=== PATIENT | male | born 1975 | race Caucasian/White ===

== ENCOUNTER 2022-06-14 00:29 | Emergency (ER) | payer SELFPAY ==
[~2022-06-14] VITALS: Ht 162.6 cm; Wt 122.0 kg
[~2022-06-14 00:29] MED LIST: ATEN100 PO; ATOR10 PO; BUPR100 PO; Coumadin7.5 MG PO; Cyclobenzaprine5 MG PO; FAMO40 PO; FUROSEMIDE20 MG PO; INVOKANA100 MG PO; LANOXIN250 MCG PO; MONT10T PO; Potassium Chlo20 ME1 PO; SITA25T2 PO; VITAMIN D5000 UNIT PO; WARF7.5 PO
[2022-06-14 01:45] LABS: BASOPHILS ABSOLUTE AUTO 0.06 K/mm3 (0.00-0.23); BASOPHILS PERCENT AUTO 1 % (0-2); EOSINOPHILS ABSOLUTE AUTO 1.14 K/mm3 (0.00-0.68); EOSINOPHILS PERCENT AUTO 10 % (0-6); Hematocrit 32.6 % (37.0-53.0); Hemoglobin 9.8 g/dL (13.5-17.5); IMMATURE GRAN ABSOLUTE AUTO 0.04 K/mm3 (0.00-0.10); IMMATURE GRAN PERCENT AUTO 0 % (0-1); LYMPHOCYTES ABSOLUTE AUTO 1.73 K/mm3 (0.84-5.20); LYMPHOCYTES PERCENT AUTO 15 % (21-46); MONOCYTES ABSOLUTE AUTO 0.87 K/mm3 (0.16-1.47); MONOCYTES PERCENT AUTO 7 % (4-13); Mean Corpuscular HGB 26.5 pg (26.0-34.0); Mean Corpuscular HGB Conc 30.1 g/dL (31.5-36.5); Mean Corpuscular Volume 88 fL (80-100); Mean Platelet Volume 9.9 fL (9.1-12.4); NEUTROPHILS ABSOLUTE AUTO 8.09 K/mm3 (1.96-9.15); NEUTROPHILS PERCENT AUTO 68 % (41-73); Platelet Count 381 K/mm3 (150-400); RDW Coefficient Variation 16.4 % (11.7-14.2); RDW Standard Deviation 52.8 fL (35.1-46.3); White Blood Cell Count 11.93 K/mm3 (4.00-11.30)
[2022-06-14 02:05] LABS: Albumin, Blood 3.5 g/dL (3.4-5.0); Albumin/Globulin Ratio 0.8 (0.8-1.8); Bilirubin, Total 0.3 mg/dL (0.1-1.0); Bun/Creatinine Ratio 15.7 (12.0-20.0); Calcium, Blood 9.5 mg/dL (8.5-10.1); Creatinine, Blood 1.02 mg/dL (0.60-1.20); Globulin, Blood 4.3 g/dL (2.2-4.0); Magnesium, Blood 2.2 mg/dL (1.6-2.4); Potassium, Blood 4.3 mmol/L (3.5-5.5); Total Protein, Blood 7.8 g/dL (6.4-8.2)
== END 2022-06-14 12:05 | disposition home or self-care (01) ==
LOC: ER 00:29
PROVIDERS: Student in an Organized Health Care Education/Training Program
DX: R06.00 Dyspnea, unspecified (principal); J45.909 Unspecified asthma, uncomplicated; I50.9 Heart failure, unspecified; Z88.8 Allergy status to other drugs, medicaments and biological substances; Z79.899 Other long term (current) drug therapy; Z79.01 Long term (current) use of anticoagulants
CPT/HCPCS: 71046; 80053; 83735; 83880; 84484; 85025; 93005; 93010; 93306

== ENCOUNTER 2022-06-26 23:36 | Emergency (ER) | payer OTHER ==
[~2022-06-26] VITALS: Ht 162.6 cm; Wt 122.5 kg
[2022-06-27 01:47] LABS: Albumin, Blood 3.5 g/dL (3.4-5.0); Albumin/Globulin Ratio 0.8 (0.8-1.8); Bilirubin, Total 0.4 mg/dL (0.1-1.0); Bun/Creatinine Ratio 9.7 (12.0-20.0); Calcium, Blood 9.2 mg/dL (8.5-10.1); Creatinine, Blood 1.24 mg/dL (0.60-1.20); Globulin, Blood 4.4 g/dL (2.2-4.0); Potassium, Blood 3.7 mmol/L (3.5-5.5); Total Protein, Blood 7.9 g/dL (6.4-8.2)
[2022-06-27 01:55] LABS: BASOPHILS ABSOLUTE AUTO 0.03 K/mm3 (0.00-0.23); BASOPHILS PERCENT AUTO 0 % (0-2); EOSINOPHILS ABSOLUTE AUTO 0.68 K/mm3 (0.00-0.68); EOSINOPHILS PERCENT AUTO 8 % (0-6); Hematocrit 31.6 % (37.0-53.0); Hemoglobin 9.9 g/dL (13.5-17.5); IMMATURE GRAN ABSOLUTE AUTO 0.04 K/mm3 (0.00-0.10); IMMATURE GRAN PERCENT AUTO 1 % (0-1); LYMPHOCYTES ABSOLUTE AUTO 2.09 K/mm3 (0.84-5.20); LYMPHOCYTES PERCENT AUTO 25 % (21-46); MONOCYTES ABSOLUTE AUTO 0.53 K/mm3 (0.16-1.47); MONOCYTES PERCENT AUTO 6 % (4-13); Mean Corpuscular HGB 26.8 pg (26.0-34.0); Mean Corpuscular HGB Conc 31.3 g/dL (31.5-36.5); Mean Corpuscular Volume 85 fL (80-100); Mean Platelet Volume 9.8 fL (9.1-12.4); NEUTROPHILS ABSOLUTE AUTO 4.86 K/mm3 (1.96-9.15); NEUTROPHILS PERCENT AUTO 59 % (41-73); Platelet Count 274 K/mm3 (150-400); RDW Standard Deviation 47.1 fL (35.1-46.3); White Blood Cell Count 8.23 K/mm3 (4.00-11.30)
[2022-06-27] MEDS ORDERED: LASIX20 M2 PO (05:27)
[2022-06-27] MEDS ORDERED: POTCHL20ER PO (05:27)
== END 2022-06-27 11:23 | disposition home or self-care (01) ==
LOC: ER 23:36
PROVIDERS: Emergency Medicine
DX: R60.0 Localized edema (principal); R06.02 Shortness of breath; Z88.8 Allergy status to other drugs, medicaments and biological substances; Z79.899 Other long term (current) drug therapy; Z79.01 Long term (current) use of anticoagulants
CPT/HCPCS: 71045; 80053; 83880; 84484; 85025; 93005; 93010; 97162; 97530; A9270; J1940

== ENCOUNTER → 2022-08-27 | Outpatient (CLI) | payer OTHER ==
[~2022-08-27] MED LIST changes: +LASIX20 M2 PO; +POTCHL20ER PO
[2022-08-27 13:56] LABS: Appearance, Urine Clear (Clear); Bilirubin, Urine Neg (Neg); Blood, Urine 4+ (Neg); Color, Urine Yellow (P-Yellow); Glucose Qualitative, Urine Neg (Neg); Ketones, Urine Neg (Neg); Leukocyte Esterase, Urine 2+ (Neg); Nitrite, Urine Neg (Neg); Protein, Urine Neg (Neg); Urobilinogen, Urine NORM (Normal)
[2022-08-27 14:36] LABS: Bacteria Few /hpf; Squamous Epithelial Cells Few /hpf (Few)
== END | disposition home or self-care (01) ==
LOC: LAB SHORT 09:40
PROVIDERS: Family Medicine
DX: R30.0 Dysuria (principal)
CPT/HCPCS: 81001; 87086

== ENCOUNTER → 2022-09-10 | Outpatient (CLI) | payer OTHER ==
[2022-09-10 20:57] LABS: Bun/Creatinine Ratio 14.7 (12.0-20.0); Calcium, Blood 9.8 mg/dL (8.5-10.1); Creatinine, Blood 0.95 mg/dL (0.60-1.20); Magnesium, Blood 2.1 mg/dL (1.6-2.4); Potassium, Blood 3.7 mmol/L (3.5-5.5)
== END | disposition home or self-care (01) ==
LOC: LAB SHORT 16:36 → LAB 16:36
PROVIDERS: Family Medicine
DX: I10 Essential (primary) hypertension (principal); I48.91 Unspecified atrial fibrillation; R60.9 Edema, unspecified; Z95.0 Presence of cardiac pacemaker; Z95.4 Presence of other heart-valve replacement
CPT/HCPCS: 80048; 83735

== ENCOUNTER 2022-11-04 03:05 | Emergency (ER) | payer OTHER ==
[~2022-11-04] VITALS: Ht 167.6 cm; Wt 113.4 kg
[2022-11-04 04:10] LABS: BASOPHILS ABSOLUTE AUTO 0.06 K/mm3 (0.00-0.23); BASOPHILS PERCENT AUTO 0 % (0-2); EOSINOPHILS ABSOLUTE AUTO 0.56 K/mm3 (0.00-0.68); EOSINOPHILS PERCENT AUTO 4 % (0-6); Hematocrit 40.8 % (37.0-53.0); Hemoglobin 12.9 g/dL (13.5-17.5); IMMATURE GRAN ABSOLUTE AUTO 0.05 K/mm3 (0.00-0.10); IMMATURE GRAN PERCENT AUTO 0 % (0-1); LYMPHOCYTES ABSOLUTE AUTO 1.67 K/mm3 (0.84-5.20); LYMPHOCYTES PERCENT AUTO 13 % (21-46); MONOCYTES ABSOLUTE AUTO 0.77 K/mm3 (0.16-1.47); MONOCYTES PERCENT AUTO 6 % (4-13); Mean Corpuscular HGB 25.1 pg (26.0-34.0); Mean Corpuscular HGB Conc 31.6 g/dL (31.5-36.5); Mean Corpuscular Volume 79 fL (80-100); Mean Platelet Volume 9.6 fL (9.1-12.4); NEUTROPHILS ABSOLUTE AUTO 10.29 K/mm3 (1.96-9.15); NEUTROPHILS PERCENT AUTO 77 % (41-73); Platelet Count 278 K/mm3 (150-400); RDW Coefficient Variation 18.1 % (11.7-14.2); RDW Standard Deviation 52.5 fL (35.1-46.3); Red Blood Cell Count 5.14 M/mm3 (4.30-5.90)
[2022-11-04 04:39] LABS: Albumin, Blood 3.8 g/dL (3.4-5.0); Albumin/Globulin Ratio 0.8 (0.8-1.8); Bilirubin, Total 0.9 mg/dL (0.1-1.0); Bun/Creatinine Ratio 16.5 (12.0-20.0); Creatinine, Blood 1.09 mg/dL (0.60-1.20); Globulin, Blood 4.5 g/dL (2.2-4.0); Potassium, Blood 3.4 mmol/L (3.5-5.5); Total Protein, Blood 8.3 g/dL (6.4-8.2)
[2022-11-04 06:34] LABS: Source, Urine Clean Catch
[2022-11-04 06:48] LABS: Appearance, Urine Clear (Clear); Bilirubin, Urine Neg (Neg); Blood, Urine 3+ (Neg); Color, Urine Yellow (P-Yellow); Glucose Qualitative, Urine Neg (Neg); Ketones, Urine Neg (Neg); Leukocyte Esterase, Urine 2+ (Neg); Nitrite, Urine Neg (Neg); Protein, Urine 2+ (Neg); Urobilinogen, Urine NORM (Normal)
[2022-11-04 07:02] LABS: Bacteria Not Seen /hpf; Hyaline Casts 0-2 /lpf (0-2); Mucus Light (0-Heavy); Squamous Epithelial Cells Mod /hpf (Few)
[2022-11-04] MEDS ORDERED: ONDA4ODT MM (07:52)
== END 2022-11-04 08:52 | disposition home or self-care (01) ==
LOC: ER 03:05
PROVIDERS: Emergency Medicine
DX: R10.9 Unspecified abdominal pain (principal); R31.9 Hematuria, unspecified; Z79.899 Other long term (current) drug therapy; Z79.01 Long term (current) use of anticoagulants
CPT/HCPCS: 36415; 80053; 81001; 82947; 85025; 87086; 96360; 99284-25; J7030

== ENCOUNTER 2023-03-24 16:43 | Emergency (ER) | payer OTHER ==
[~2023-03-24] VITALS: Ht 162.6 cm; Wt 129.3 kg
[~2023-03-24 16:43] MED LIST changes: +ALBU90OI INH; +ASPIRIN REGIMEN81 MG; +CARVEDILOL12.5 MG; +CELEXA40 M9; +Hydroxyzine HCl25 MG; +LOSARTAN POTASS25 M2; +NYAMYC1513; +ONDA4ODT MM
[2023-03-24] MEDS ORDERED: Cyclobenzaprine5 MG PO (17:13)
[2023-03-24 17:36] LABS: BASOPHILS ABSOLUTE AUTO 0.03 K/mm3 (0.00-0.23); BASOPHILS PERCENT AUTO 0 % (0-2); EOSINOPHILS ABSOLUTE AUTO 0.22 K/mm3 (0.00-0.68); EOSINOPHILS PERCENT AUTO 2 % (0-6); Hematocrit 45.4 % (37.0-53.0); Hemoglobin 13.9 g/dL (13.5-17.5); IMMATURE GRAN ABSOLUTE AUTO 0.05 K/mm3 (0.00-0.10); IMMATURE GRAN PERCENT AUTO 0 % (0-1); LYMPHOCYTES ABSOLUTE AUTO 0.52 K/mm3 (0.84-5.20); LYMPHOCYTES PERCENT AUTO 4 % (21-46); MONOCYTES ABSOLUTE AUTO 0.62 K/mm3 (0.16-1.47); MONOCYTES PERCENT AUTO 5 % (4-13); Mean Corpuscular HGB 26.5 pg (26.0-34.0); Mean Corpuscular HGB Conc 30.6 g/dL (31.5-36.5); Mean Corpuscular Volume 87 fL (80-100); Mean Platelet Volume 9.2 fL (9.1-12.4); NEUTROPHILS ABSOLUTE AUTO 11.61 K/mm3 (1.96-9.15); NEUTROPHILS PERCENT AUTO 89 % (41-73); Platelet Count 242 K/mm3 (150-400); RDW Coefficient Variation 15.4 % (11.7-14.2); RDW Standard Deviation 47.9 fL (35.1-46.3); Red Blood Cell Count 5.25 M/mm3 (4.30-5.90); White Blood Cell Count 13.05 K/mm3 (4.00-11.30)
[2023-03-24 18:02] LABS: Albumin, Blood 4.1 g/dL (3.4-5.0); Albumin/Globulin Ratio 0.9 (0.8-1.8); Bilirubin, Total 0.9 mg/dL (0.1-1.0); Bun/Creatinine Ratio 16.4 (12.0-20.0); Calcium, Blood 8.9 mg/dL (8.5-10.1); Creatinine, Blood 0.98 mg/dL (0.60-1.20); Globulin, Blood 4.6 g/dL (2.2-4.0); Potassium, Blood 4.3 mmol/L (3.5-5.5); Total Protein, Blood 8.7 g/dL (6.4-8.2)
[2023-03-24 18:23] LABS: Influenza A, PCR NEGATIVE (NEGATIVE); Influenza B, PCR NEGATIVE (NEGATIVE); Resp Syncytial Virus, PCR NEGATIVE (NEGATIVE); SARS-Cov-2 (COVID-19) PCR, MMC NEGATIVE (NEGATIVE)
[2023-03-24 20:18] VITALS: BP 132/70
[2023-03-24] MEDS ORDERED: ONDA4ODT MM (20:58)
== END 2023-03-24 21:12 | disposition home or self-care (01) ==
LOC: ER 16:43
PROVIDERS: Student in an Organized Health Care Education/Training Program
DX: R11.2 Nausea with vomiting, unspecified (principal); R19.7 Diarrhea, unspecified; Z20.822 Contact with and (suspected) exposure to COVID-19; Z88.8 Allergy status to other drugs, medicaments and biological substances; Z79.899 Other long term (current) drug therapy; Z79.82 Long term (current) use of aspirin; I50.9 Heart failure, unspecified; J45.909 Unspecified asthma, uncomplicated
CPT/HCPCS: 0241U; 71260; 80053; 84484; 85025; 96374-59; 96375-59; 99284-25; A9270; J1885; J2405; J2765; J7030; Q9967

== ENCOUNTER → 2023-04-24 | Outpatient (CLI) | payer OTHER | END | disposition home or self-care (01) | LOC: LAB SHORT 16:21 → LAB 16:21 | DX: S91.102S Unspecified open wound of left great toe without damage to nail, sequela (principal) | CPT/HCPCS: 87070; 87075; 87205 ==

== ENCOUNTER 2023-05-15 01:48 | Emergency (ER) | payer OTHER ==
[~2023-05-15] VITALS: Ht 162.6 cm; Wt 128.8 kg
[2023-05-15 03:37] LABS: BASOPHILS ABSOLUTE AUTO 0.03 K/mm3 (0.00-0.23); BASOPHILS PERCENT AUTO 0 % (0-2); EOSINOPHILS PERCENT AUTO 3 % (0-6); Hematocrit 38.7 % (37.0-53.0); Hemoglobin 12.6 g/dL (13.5-17.5); IMMATURE GRAN ABSOLUTE AUTO 0.04 K/mm3 (0.00-0.10); IMMATURE GRAN PERCENT AUTO 0 % (0-1); LYMPHOCYTES ABSOLUTE AUTO 1.24 K/mm3 (0.84-5.20); LYMPHOCYTES PERCENT AUTO 11 % (21-46); MONOCYTES ABSOLUTE AUTO 0.69 K/mm3 (0.16-1.47); MONOCYTES PERCENT AUTO 6 % (4-13); Mean Corpuscular HGB 26.9 pg (26.0-34.0); Mean Corpuscular HGB Conc 32.6 g/dL (31.5-36.5); Mean Corpuscular Volume 83 fL (80-100); Mean Platelet Volume 8.9 fL (9.1-12.4); NEUTROPHILS ABSOLUTE AUTO 8.84 K/mm3 (1.96-9.15); NEUTROPHILS PERCENT AUTO 79 % (41-73); Platelet Count 226 K/mm3 (150-400); RDW Coefficient Variation 15.4 % (11.7-14.2); RDW Standard Deviation 46.5 fL (35.1-46.3); Red Blood Cell Count 4.69 M/mm3 (4.30-5.90); White Blood Cell Count 11.14 K/mm3 (4.00-11.30)
[2023-05-15 03:58] LABS: Albumin, Blood 3.6 g/dL (3.4-5.0); Albumin/Globulin Ratio 0.8 (0.8-1.8); Bilirubin, Total 0.4 mg/dL (0.1-1.0); Bun/Creatinine Ratio 7.7 (12.0-20.0); Calcium, Blood 9.1 mg/dL (8.5-10.1); Creatinine, Blood 1.3 mg/dL (0.60-1.20); Globulin, Blood 4.4 g/dL (2.2-4.0); Potassium, Blood 3.8 mmol/L (3.5-5.5)
[2023-05-15 05:15] VITALS: BP 101/67
== END 2023-05-15 05:37 | disposition home or self-care (01) ==
LOC: ER 01:48
PROVIDERS: Student in an Organized Health Care Education/Training Program
DX: E86.0 Dehydration (principal); N17.9 Acute kidney failure, unspecified; T43.215A Adverse effect of selective serotonin and norepinephrine reuptake inhibitors, initial encounter; Z88.8 Allergy status to other drugs, medicaments and biological substances; Z79.899 Other long term (current) drug therapy; Z79.82 Long term (current) use of aspirin; J45.909 Unspecified asthma, uncomplicated; I50.9 Heart failure, unspecified
CPT/HCPCS: 36415; 80053; 85025; 93005; 93010; J7030

== ENCOUNTER 2023-08-09 21:53 | Emergency (ER) | payer OTHER ==
[~2023-08-09] VITALS: Ht 162.6 cm; Wt 127.0 kg
[~2023-08-09 21:53] MED LIST changes: +Aspir 8181 MG PO; +BUPR150ER PO; +CELEXA40 M1 PO; +CYCL10 PO; +Carvedilol12.5 MG PO; +GUAIFENESIN ER600 MG PO; +HYDPAM25 PO; +LOSA25 PO; +MELO7.5 PO; +OMEP20ER PO; +TOPI25 PO; +Tessalon200 MG PO
[2023-08-09 22:43] LABS: Base Excess Venous 9.7 mmol/L; PCO2 Venous 36.2 mmHg (38-42); pH Blood Venous 7.56 (7.34-7.37)
[2023-08-09 22:53] LABS: Source, Urine Voided
[2023-08-09 23:01] LABS: Bilirubin, Urine Neg (Neg); Blood, Urine Neg (Neg); Glucose Qualitative, Urine 4+ (Neg); Ketones, Urine Neg (Neg); Leukocyte Esterase, Urine Neg (Neg); Nitrite, Urine Neg (Neg); Protein, Urine Neg (Neg); Specific Gravity, Urine 1.025 (1.003-1.022); Urobilinogen, Urine NORM (Normal)
[2023-08-09 23:03] LABS: BASOPHILS ABSOLUTE AUTO 0.02 K/mm3 (0.00-0.23); BASOPHILS PERCENT AUTO 0 % (0-2); EOSINOPHILS ABSOLUTE AUTO 0.47 K/mm3 (0.00-0.68); EOSINOPHILS PERCENT AUTO 5 % (0-6); Hematocrit 34.5 % (37.0-53.0); Hemoglobin 10.7 g/dL (13.5-17.5); IMMATURE GRAN ABSOLUTE AUTO 0.02 K/mm3 (0.00-0.10); IMMATURE GRAN PERCENT AUTO 0 % (0-1); LYMPHOCYTES ABSOLUTE AUTO 1.64 K/mm3 (0.84-5.20); LYMPHOCYTES PERCENT AUTO 19 % (21-46); MONOCYTES ABSOLUTE AUTO 0.53 K/mm3 (0.16-1.47); MONOCYTES PERCENT AUTO 6 % (4-13); Mean Corpuscular HGB 26.2 pg (26.0-34.0); Mean Corpuscular Volume 84 fL (80-100); NEUTROPHILS ABSOLUTE AUTO 6.14 K/mm3 (1.96-9.15); NEUTROPHILS PERCENT AUTO 70 % (41-73); Platelet Count 280 K/mm3 (150-400); RDW Coefficient Variation 15.6 % (11.7-14.2); RDW Standard Deviation 46.9 fL (35.1-46.3); Red Blood Cell Count 4.09 M/mm3 (4.30-5.90); White Blood Cell Count 8.82 K/mm3 (4.00-11.30)
[2023-08-09 23:11] LABS: Appearance, Urine Clear (Clear); Color, Urine Yellow (P-Yellow)
[2023-08-09 23:21] LABS: U Amphetamine Screen Not Detected
[2023-08-09 23:21] LABS: Alanine Aminotransfer (ALT/SGP 14 U/L (12-78); Albumin, Blood 3.5 g/dL (3.4-5.0); Albumin/Globulin Ratio 0.8 (0.8-1.8); Alk Phos 102 U/L (50-136); Anion Gap 3 mmol/L (6-16); Aspartate Aminotrans (AST/SGOT 14 U/L (12-37); Bilirubin, Total 0.8 mg/dL (0.1-1.0); Blood Urea Nitrogen 13 mg/dL (8-24); Bun/Creatinine Ratio 13.8 (12.0-20.0); CO2, Blood 35 mmol/L (21-32); Calcium, Blood 8.6 mg/dL (8.5-10.1); Chloride, Blood 102 mmol/L (98-108); Creatinine, Blood 0.94 mg/dL (0.60-1.20); Ethanol (Alcohol), Blood, Med <3 mg/dL; Globulin, Blood 4.5 g/dL (2.2-4.0); Glomerular Filtration Rate 101 (60-); Glucose, Blood 92 mg/dL (70-99); Sodium, Blood 140 mmol/L (136-145)
[2023-08-09 23:22] LABS: U Barbituate Screen Not Detected; U Benzodiazapine Screen Not Detected; U Buprenorphine Screen Not Detected; U Cannabinoids Screen Not Detected; U Cocaine Screen Not Detected; U Methadone Screen Not Detected; U Methamphetamine Screen Not Detected; U Opiates Screen Not Detected; U Oxycodone Screen Not Detected; U Phencyclidine Screen Not Detected
[2023-08-09 23:31] LABS: Influenza A, PCR NEGATIVE (NEGATIVE); Influenza B, PCR NEGATIVE (NEGATIVE); Resp Syncytial Virus, PCR NEGATIVE (NEGATIVE); SARS-Cov-2 (COVID-19) PCR, MMC NEGATIVE (NEGATIVE)
[2023-08-10] MEDS ORDERED: ALBU90OI INH (00:03)
[2023-08-10] MEDS ORDERED: PRED20 PO (00:03)
[2023-08-10] MEDS ORDERED: Zithromax Tri-500 MG PO (00:03)
[2023-08-10 01:11] VITALS: BP 132/87
== END 2023-08-10 01:08 | disposition home or self-care (01) ==
LOC: ER 21:53
PROVIDERS: Emergency Medicine
DX: J44.1 Chronic obstructive pulmonary disease with (acute) exacerbation (principal); I50.9 Heart failure, unspecified; Z11.52 Encounter for screening for COVID-19; Z88.8 Allergy status to other drugs, medicaments and biological substances; Z79.899 Other long term (current) drug therapy; Z79.82 Long term (current) use of aspirin
CPT/HCPCS: 0241U; 71045; 80053; 81003; 82803; 83880; 84484; 85025; 93005; 93010; 94640; 94664; 99285-25

== ENCOUNTER 2023-10-03 01:14 | Observation (INO) | payer OTHER ==
[~2023-10-03] VITALS: Ht 162.6 cm; Wt 114.9 kg
[~2023-10-03 01:14] MED LIST changes: -ASPIRIN REGIMEN81 MG; +ASPIRIN REGIMEN81 MG PO; +PRED20 PO; +Zithromax Tri-500 MG PO
[2023-10-03 02:10] LABS: BASOPHILS ABSOLUTE AUTO 0.03 K/mm3 (0.00-0.23); BASOPHILS PERCENT AUTO 0 % (0-2); EOSINOPHILS ABSOLUTE AUTO 0.42 K/mm3 (0.00-0.68); EOSINOPHILS PERCENT AUTO 5 % (0-6); Hematocrit 34.9 % (37.0-53.0); IMMATURE GRAN ABSOLUTE AUTO 0.03 K/mm3 (0.00-0.10); IMMATURE GRAN PERCENT AUTO 0 % (0-1); LYMPHOCYTES ABSOLUTE AUTO 2.11 K/mm3 (0.84-5.20); LYMPHOCYTES PERCENT AUTO 23 % (21-46); MONOCYTES ABSOLUTE AUTO 0.65 K/mm3 (0.16-1.47); MONOCYTES PERCENT AUTO 7 % (4-13); Mean Corpuscular HGB 25.8 pg (26.0-34.0); Mean Corpuscular HGB Conc 31.5 g/dL (31.5-36.5); Mean Corpuscular Volume 82 fL (80-100); Mean Platelet Volume 8.9 fL (9.1-12.4); NEUTROPHILS ABSOLUTE AUTO 5.88 K/mm3 (1.96-9.15); NEUTROPHILS PERCENT AUTO 65 % (41-73); Platelet Count 309 K/mm3 (150-400); RDW Coefficient Variation 15.9 % (11.7-14.2); RDW Standard Deviation 47.4 fL (35.1-46.3); Red Blood Cell Count 4.26 M/mm3 (4.30-5.90); White Blood Cell Count 9.12 K/mm3 (4.00-11.30)
[2023-10-03 02:30] LABS: Albumin, Blood 3.8 g/dL (3.4-5.0); Albumin/Globulin Ratio 0.8 (0.8-1.8); Bilirubin, Total 0.6 mg/dL (0.1-1.0); Bun/Creatinine Ratio 19.7 (12.0-20.0); Calcium, Blood 9.2 mg/dL (8.5-10.1); Creatinine, Blood 0.96 mg/dL (0.60-1.20); Globulin, Blood 4.6 g/dL (2.2-4.0); Potassium, Blood 4.1 mmol/L (3.5-5.5); Total Protein, Blood 8.4 g/dL (6.4-8.2)
[2023-10-03] MEDS ORDERED: FLU VACC QS2023-24(6MOS UP)/PF 60 MCG/0.5 ML SYRINGE IM SCH (07:55)
[2023-10-03] MEDS ORDERED: Acetaminophen 500 MG Tab PO PRN (08:00)
[2023-10-03] MEDS ORDERED: PredniSONE 20 MG Tab PO ONE (08:00)
[2023-10-03] MEDS ORDERED: Benzonatate 100 MG Cap PO PRN (08:00)
[2023-10-03] MEDS ORDERED: Polyethylene Glycol 3350 17 gm PO PRN (08:00)
[2023-10-03] MEDS ORDERED: Cholecalciferol 1000 Unit Tablet (=25MCG) PO SCH (09:00)
[2023-10-03 13:40] VITALS: BP 124/62
--- NOTE | 2023-10-03 18:09 | NUR ---
ER ADMIT Patient admitted for syncope, 3lpm oxygen to maintain sats. RN reviewed med rec, need to bring copy to complete med rec. Patient has albuterol MDI at bedside, and uses frequently. Educated patient on hospital policy for home meds, patient said we are not taking the MDI from him, RN called and reported to MD. RT at bedside to set up CPAP. Will continue plan of care.
[2023-10-03 19:41] VITALS: BP 148/96
[2023-10-03] MEDS ORDERED: Docusate Sodium/Senna 1 Tab PO SCH (21:00)
[2023-10-03] MEDS ORDERED: Melatonin 5 MG Tablet PO SCH (23:30)
[2023-10-04] MEDS ORDERED: FLUoxetine HCL 20 MG CAP PO SCH ×2 (00:10→09:00)
[2023-10-04 04:39] VITALS: BP 122/75
[2023-10-04 04:57] LABS: Base Excess Venous 12.1 mmol/L; Bicarbonate Venous 34.6 mmol/L (24.0-30.0); PCO2 Venous 47.2 mmHg (38-42); pH Blood Venous 7.49 (7.34-7.37)
[2023-10-04 05:21] LABS: Hematocrit 34.3 % (37.0-53.0); Hemoglobin 10.7 g/dL (13.5-17.5); Mean Corpuscular HGB 25.9 pg (26.0-34.0); Mean Corpuscular HGB Conc 31.2 g/dL (31.5-36.5); Mean Corpuscular Volume 83 fL (80-100); Mean Platelet Volume 9.3 fL (9.1-12.4); Platelet Count 280 K/mm3 (150-400); RDW Coefficient Variation 15.7 % (11.7-14.2); RDW Standard Deviation 47.2 fL (35.1-46.3); Red Blood Cell Count 4.13 M/mm3 (4.30-5.90); White Blood Cell Count 9.94 K/mm3 (4.00-11.30)
[2023-10-04] MEDS ORDERED: Omeprazole 20 MG CapCR PO SCH (06:00)
[2023-10-04 06:36] LABS: Albumin, Blood 3.6 g/dL (3.4-5.0); Anion Gap 3 mmol/L (6-16); Blood Urea Nitrogen 15 mg/dL (8-24); Bun/Creatinine Ratio 17.2 (12.0-20.0); CO2, Blood 33 mmol/L (21-32); Calcium, Blood 9.3 mg/dL (8.5-10.1); Chloride, Blood 100 mmol/L (98-108); Creatinine, Blood 0.87 mg/dL (0.60-1.20); Glomerular Filtration Rate 108 (60-); Glucose, Blood 132 mg/dL (70-99); Phosphorus, Blood 3.5 mg/dL (2.5-4.9); Potassium, Blood 3.7 mmol/L (3.5-5.5); Sodium, Blood 136 mmol/L (136-145)
[2023-10-04 07:48] VITALS: BP 135/83
--- NOTE | 2023-10-04 08:36 | NUR ---
SHIFT SUMMARY MAGO IS A&OX4, VSS ON 3L NC, BIPAP AT [facility]. A-PACED @ 96 VIA TELEMETRY. DENIES PAIN. INDEPENDENT IN ROOM/BR. VOIDING IN BR, NO BM THIS SHIFT. PT ON A REGULAR DIET, STATES HE IS NOT DIABETIC. BG AT HS WAS 228. WANTING MULTIPLE SNACKS, I TOLD HIM HE COULD HAVE SUGAR FREE. HE AGREED. SAID HE DOESN'T DRINK WATER, I OFFERED DIET PEPSI, HE STATED HE DOESN'T DRINK DARK COLORED SODA. BED IN LOWEST POSITION, CALL LIGHT WITHIN REACH.
[2023-10-04] MEDS ORDERED: Losartan Potassium 25 MG Tab PO SCH (09:00)
[2023-10-04] MEDS ORDERED: Topiramate 25 MG Tab PO SCH (09:00)
[2023-10-04] MEDS ORDERED: Carvedilol 6.25 MG Tab PO SCH (09:00)
[2023-10-04] MEDS ORDERED: Enoxaparin 40 MG/0.4 ML SYR SC SCH (09:00)
[2023-10-04] MEDS ORDERED: Atorvastatin 40 MG Tab PO SCH (09:00)
[2023-10-04] MEDS ORDERED: Aspirin 81 MG Chew PO SCH (09:00)
[2023-10-04 15:42] VITALS: BP 114/67
--- NOTE | 2023-10-04 17:36 | NUR ---
PATIENT A/OX4, UP INDEPENDENTLY IN ROOM. VSS, 3LO2 TO MAINTAIN SATS WITH CPAP AT [facility]. ECHO ORDRED TODAY AND HAS NOT BEEN COMPLETED. NO NEW CONCERNS THIS SHIFT. V-PACED ON TELE. DENIES ANY CHEST PAIN OR PRESSURE. DENIES ANY DIZZINESS AND NO EPISODES OF COUGHING TODAY.
[2023-10-04 19:20] VITALS: BP 130/69
[2023-10-05 04:40] VITALS: BP 129/76
[2023-10-05 07:41] VITALS: BP 105/67
--- NOTE | 2023-10-05 08:26 | NUR ---
SHIFT SUMMARY PT IS A&OX4, VSS ON 3L NC, BIPAP WITH 4L BLEED IN AT NOC. PT IS V-PACED @ 83 PER TELEMETRY. NO C/O CHEST PAIN OR PRESSURE. NO SOB. PT WANTS TO SNACK ALL T/O THE NOC. HAS ROBUST APPETITE. UP INDEPENDENTLY IN ROOM/BR. VOIDING IN BR, NO BM THIS SHIFT. PT WAITING FOR ECHO. STATES HE IS DISAPPOINTED IN THE HOSPITAL AND FEELS LIKE NOTHING HAS BEEN DONE FOR HIM. BED IN LOWEST POSITION, CALL LIGHT WITHIN REACH.
[2023-10-05 16:06] VITALS: BP 107/58
[2023-10-05 19:15] VITALS: BP 113/69
--- NOTE | 2023-10-05 19:22 | NUR ---
NO ACUTE CHANGES THIS SHIFT. PATIENT INDEPENDENT IN ROOM. REMAINS ON 3L O2 WITH CPAP AT [facility]. ECHO DONE TODAY AND BATTING MACHINE OPERATOR CONSULTED. VITAL SIGNS STABLE. TOLERATING DIET. ABLE TO MAKE NEEDS KNOWN.
[2023-10-06 02:39] VITALS: BP 119/70
[2023-10-06 07:27] VITALS: BP 111/71
--- NOTE | 2023-10-06 08:04 | NUR ---
SHIFT SUMMARY NO ACUTE CHANGES FOR 'RONEY' LAST NIGHT. VSS ON 3L NC, BIPAP WHILE ASLEEP. PER TELEMETRY PT IS V-PACED @ 83 WITH BBB. UP INDEPENDENTLY IN ROOM. VOIDING IN BR, NO BM THIS SHIFT. BED IN LOWEST POSITION, CALL LIGHT WITHIN REACH.
[2023-10-06] MEDS ORDERED: Regadenoson 0.4 MG/5 ML SYRINGE ONE (14:26)
[2023-10-06] MEDS ORDERED: Aminophylline 250MG / 10ML 10 ML Vial ONE (14:26)
--- NOTE | 2023-10-06 18:42 | NUR ---
PATIENT A/OX4, UP INDPENDENTLY IN ROOM AND HALLS TODAY. VSS, ON 3LO2 [facility]IA [facility]. PATIENT HAD FIRST PART OF STRESS TEST TODAY AND WILL HAVE 2ND PART TOMORROW AT NOON. PATIENT TO BE NPO AFTER 0800 TOMORROW MORNING. V-PACED IN THE 80'S ON TELE. NO NEW CONCERNS THIS SHIFT.
[2023-10-06 19:24] VITALS: BP 125/60
[2023-10-07 04:35] VITALS: BP 129/70
[2023-10-07 07:12] VITALS: BP 104/54
--- NOTE | 2023-10-07 08:56 | NUR ---
SHIFT SUMMARY NO ACUTE CHANGES THIS SHIFT. VSS, V-PACED IN THE 70'S WITH PROLONGED QTC PER TELEMETRY. DENIES PAIN. PT DECIDES WHAT MEDICATIONS HE WANTS TO TAKE. STATES HE TAKES A MAJORITY OF THEM DIFFERENT AT HOME THAN WHAT IS ON THE EMAR. VOIDING IN BR, BM X1 THIS SHIFT. PT NEEDING HELP WITH WIPING, HE STATES HE IS NOT ABLE TO DO THIS. TOLERATING A REGULAR DIET, ROBUST APPETITE. SNACKING T/O NIGHT. BED IN LOWEST POSITION, CALL APPROPRIATELY.
--- NOTE | 2023-10-07 15:18 | NUR ---
SHIFT SUMMARY MR PARRA HAS SLEPT FOR MUCH OF THE DAY WEARING CPAP WITH OXYGEN BLEED IN. HE HAD SECOND PART OF STRESS TEST DONE TODAY. C/O OCCASIONAL CHRONIC R SHOULDER PAIN AND MILD HEADACHE, TREATED WITH TYLENOL. UP INDEPENDENTLY TO BATHROOM. BED LOW, CALL LIGHT IN REACH.
[2023-10-07] MEDS ORDERED: STEGLATRO5 MG PO (17:05)
[2023-10-07] MEDS ORDERED: ATOR40TA PO (17:07)
[2023-10-07] MEDS ORDERED: Prozac20 MG PO (17:08)
[2023-10-07] MEDS ORDERED: Atarax10 MG PO (17:11)
[2023-10-07] MEDS ORDERED: Pulmicort Fle180 MCG INH (17:17)
[2023-10-07] MEDS ORDERED: SUMA25 PO (17:20)
[2023-10-07] MEDS ORDERED: MELATONIN10 M4 PO (17:48)
[2023-10-07] MEDS ORDERED: ENTRESTO 49 MG1 EACH PO (17:49)
--- NOTE | 2023-10-07 18:49 | NUR ---
DISCHARGE MR FIDEL VERBALISED UNDERSTANDING OF WRITTEN AND VERBAL DISCHARGE INSTRUCTIONS. PIV REMOVED INTACT. TRANSPORT TAXI MEETING HIM AT ER ENTRANCE. HE HAS HIS OWN PORTABLE OXYGEN FOR TRANSPORT. AWAITING WHEELCHAIR RIDE DOWN TO 2ND FLOOR ENTRANCE.
--- NOTE | 2023-10-07 19:37 | NUR ---
TO MEET TAXI IN THE ED. TRANSPORTED TO ED VIA WHEELCHAIR. NO C/O VOICED. DC'D PER MD ORDERS
== END 2023-10-07 19:41 | disposition home or self-care (01) ==
LOC: ER 01:14 → MEDS 01:15 → ERHOLD 01:15 → MEDS 13:30
PROVIDERS: Student in an Organized Health Care Education/Training Program; ADMIT Internal Medicine
DX: R05.8 Other specified cough (principal); J96.11 Chronic respiratory failure with hypoxia; J96.12 Chronic respiratory failure with hypercapnia; I05.0 Rheumatic mitral stenosis; J44.9 Chronic obstructive pulmonary disease, unspecified; I50.42 Chronic combined systolic (congestive) and diastolic (congestive) heart failure; G47.33 Obstructive sleep apnea (adult) (pediatric); K21.9 Gastro-esophageal reflux disease without esophagitis; Z95.4 Presence of other heart-valve replacement; E88.810 Metabolic syndrome
CPT/HCPCS: 36415; 71045; 78452; 80053; 80069; 82803; 82947; 83036; 83880; 84484; 85025; 85027; 93005; 93010; 93017; 94660; 94762; 99285-25; A9270; A9500; C8929; G0378; J0280; J2785; J7512; Q9957

== ENCOUNTER → 2023-11-23 | Outpatient (CLI) | payer OTHER ==
[~2023-11-23] MED LIST changes: +ATOR40TA PO; +Atarax10 MG PO; +ENTRESTO 49 MG1 EACH PO; +MELATONIN10 M4 PO; +Prozac20 MG PO; +Pulmicort Fle180 MCG INH; +STEGLATRO5 MG PO; +SUMA25 PO
== END ==
LOC: LAB SHORT 17:01 → LAB 17:01
DX: R30.0 Dysuria (principal)
CPT/HCPCS: 87086; 87147

== ENCOUNTER 2024-03-16 18:32 | Emergency (ER) | payer OTHER ==
[~2024-03-16] VITALS: Ht 162.6 cm; Wt 142.9 kg
[2024-03-16 19:27] LABS: BASOPHILS ABSOLUTE AUTO 0.03 K/mm3 (0.00-0.23); BASOPHILS PERCENT AUTO 0 % (0-2); EOSINOPHILS PERCENT AUTO 2 % (0-6); Hematocrit 40.2 % (37.0-53.0); IMMATURE GRAN ABSOLUTE AUTO 0.03 K/mm3 (0.00-0.10); IMMATURE GRAN PERCENT AUTO 0 % (0-1); LYMPHOCYTES ABSOLUTE AUTO 1.62 K/mm3 (0.84-5.20); LYMPHOCYTES PERCENT AUTO 15 % (21-46); MONOCYTES ABSOLUTE AUTO 0.57 K/mm3 (0.16-1.47); MONOCYTES PERCENT AUTO 5 % (4-13); Mean Corpuscular HGB 27.8 pg (26.0-34.0); Mean Corpuscular HGB Conc 32.3 g/dL (31.5-36.5); Mean Corpuscular Volume 86 fL (80-100); Mean Platelet Volume 8.7 fL (9.1-12.4); NEUTROPHILS ABSOLUTE AUTO 8.39 K/mm3 (1.96-9.15); NEUTROPHILS PERCENT AUTO 77 % (41-73); Platelet Count 262 K/mm3 (150-400); RDW Coefficient Variation 14.9 % (11.7-14.2); RDW Standard Deviation 47.3 fL (35.1-46.3); Red Blood Cell Count 4.68 M/mm3 (4.30-5.90); White Blood Cell Count 10.84 K/mm3 (4.00-11.30)
[2024-03-16 19:43] LABS: Albumin, Blood 3.7 g/dL (3.4-5.0); Albumin/Globulin Ratio 0.8 (0.8-1.8); Bilirubin, Total 0.6 mg/dL (0.1-1.0); Bun/Creatinine Ratio 16.1 (12.0-20.0); Calcium, Blood 9.2 mg/dL (8.5-10.1); Creatinine, Blood 1.24 mg/dL (0.60-1.20); Globulin, Blood 4.8 g/dL (2.2-4.0); Potassium, Blood 3.7 mmol/L (3.5-5.5); Total Protein, Blood 8.5 g/dL (6.4-8.2)
[2024-03-16] MEDS ORDERED: Prozac40 MG PO (20:22)
[2024-03-16] MEDS ORDERED: LOSARTAN POTASS25 M2 PO (20:23)
[2024-03-16] MEDS ORDERED: TOPI100 PO (20:23)
[2024-03-16 21:24] VITALS: BP 146/77
== END 2024-03-16 22:18 | disposition home or self-care (01) ==
LOC: ER 18:32
PROVIDERS: Emergency Medicine
DX: M79.604 Pain in right leg (principal); M79.605 Pain in left leg; R22.43 Localized swelling, mass and lump, lower limb, bilateral; K62.5 Hemorrhage of anus and rectum; J44.9 Chronic obstructive pulmonary disease, unspecified; E78.5 Hyperlipidemia, unspecified; Z88.8 Allergy status to other drugs, medicaments and biological substances; Z79.82 Long term (current) use of aspirin; Z79.899 Other long term (current) drug therapy; Z95.0 Presence of cardiac pacemaker; Z87.891 Personal history of nicotine dependence
CPT/HCPCS: 80053; 83880; 84484; 85025; 93005; 93010; 99283-25